=== PATIENT | female | born 1960 | race Asian ===

== ENCOUNTER 2017-01-08 09:05 | Emergency (ER) | payer SELFPAY ==
[2017-01-08 09:18] VITALS: BP 140/79; PULSE 77; TEMP 98.3; BMI 29.2
--- NOTE | 2017-01-08 10:32 | PDOC ---
History of Present Illness - General Chief Complaint: Respiratory Stated Complaint: COUGH Time Seen by Provider: 01/08/17 09:27 History Source: Patient Exam Limitations: No Limitations - History of Present Illness Initial Comments: 01/08/17 10:27 56 yr female no medical history c/o cough for one week. Pt on day 4 of albuterol inhaler, prednisone and augmentin. Pt denies fever or chills, is requesting a cxr. Pt has no history of travel, states she is feeling better. 01/08/17 10:28 Timing/Duration: reports: week Severity: reports: mild Past History - Past Medical History Allergies/Adverse Reactions: Allergies Allergy/AdvReac Type Severity Reaction Status Date / Time No Known Allergies Allergy Unverified 01/08/17 09:16 Home Medications: Ambulatory Orders Glyburide 5 mg PO BID 01/08/17 Lisinopril/Hydrochlorothiazide [Lisinopril-Hctz 10-12.5 mg Tab] 10 mg PO ASDIR 01/08/17 Metformin HCl [Metformin HCl ER] 500 mg PO BID 01/08/17 Promethazine HCl/Codeine [Prometh-Codein 6.25-10 mg/5 ml] 5 ml PO QID PRN #100 syrup MDD 30ml 01/08/17 Diabetes: Yes - Psycho/Social/Smoking Cessation Hx Suicidal Ideation: No Smoking History: Smoker current status UNK Information on smoking cessation initiated: No Hx Alcohol Use: No Drug/Substance Use Hx: No Respiratory Specific PMHX - Complaint Specific PMHX Angina: No Bronchitis: No Pneumonia: No Pulmonary Embolus: No TB (Tuberculosis): No Review of Systems - Review of Systems Able to Perform ROS?: Yes Is the patient limited [place] proficient: No Constitutional: No: Symptoms Reported HEENTM: No: Symptoms Reported Respiratory: Yes: See HPI, Cough *Physical Exam - Vital Signs Last Vital Signs Temp Pulse Resp BP Pulse Ox 98.3 F 77 17 140/79 98 01/08/17 09:11 01/08/17 09:11 01/08/17 09:11 01/08/17 09:11 01/08/17 09:11 - Physical Exam General Appearance: Yes: Nourished, Appropriately Dressed HEENT: positive: EOMI, [place], Normal ENT Inspection, TMs Normal, Pharynx Normal Neck: positive: Supple Respiratory/Chest: positive: Lungs Clear, Normal Breath Sounds. negative: Chest Tender Cardiovascular: positive: Regular Rhythm, Regular Rate Gastrointestinal/Abdominal: positive: Normal Bowel Sounds, Soft Musculoskeletal: positive: Normal Inspection Extremity: positive: Normal Capillary Refill, Normal Inspection, Normal Range of Motion Integumentary: positive: Normal Color, Dry, Warm Neurologic: positive: Fully Oriented, Alert, Normal Mood/Affect, Normal Response , Motor Strength 11/28 ED Treatment Course - RADIOLOGY Radiology Studies Ordered: Category Date Time Status CHEST PA & LAT [RAD] Stat Radiology 01/08/17 09:27 Taken Medical Decision Making - Medical Decision Making 01/08/17 10:28 cc: cough productive phlegm improving since taking meds pt requesting CXR no sob no cp vitals stable 01/08/17 10:52 cxr is negative results have been given to the patient all questions asked and answered on discharge *DC/Admit/Observation/Transfer Diagnosis at time of Disposition: Cough - Discharge Dispostion Disposition: HOME Condition at time of disposition: Good - Prescriptions Prescriptions: Promethazine HCl/Codeine [Prometh-Codein 6.25-10 mg/5 ml] 5 ml PO QID PRN #100 syrup MDD 30ml PRN Reason: Cough - Referrals Referrals: Hubert Butler MD [Staff Physician] - - Patient Instructions Additional Instructions: continue taking the medications you are on take the cough syrup as prescribed with food DO NOT DRIVE, OPERATE MACHINERY OR DRINK ALCOHOL THIS CONTAINS CODEINE return if any worsening symptoms make sure you are drinking pleanty of fluids follow with ENT and allergy if symptoms continue
== END 2017-01-08 10:57 | disposition home or self-care (01) ==
LOC: JERFT 09:05 → JER 09:05 → JERFT 10:57
DX: R05 Cough (principal); E11.9 Type 2 diabetes mellitus without complications; Z79.84 Long term (current) use of oral hypoglycemic drugs
CPT/HCPCS: 71020-TC; 99281-25

== ENCOUNTER 2018-12-03 19:43 | Emergency (ER) | payer OTHER ==
--- NOTE | 2018-12-03 20:09 | PDOC ---
Rapid Medical Evaluation Medical Evaluation: Allergies Allergy/AdvReac Type Severity Reaction Status Date / Time No Known Allergies Allergy Unverified 01/08/17 09:16 I have performed a brief in-person evaluation of this patient. The patient presents with a chief complaint of: L sided flank pain when taking inspiration since this afternoon; had temp of 99 today; denies cough, abd pain, n/v/d Pertinent physical exam findings: In NAD I have ordered the following: Labs, EKG, CXR The patient will proceed to the ED for further evaluation. 12/03/18 20:05
[2018-12-03 20:13] VITALS: TEMP 99.4; BMI 29.7
[2018-12-03] MEDS ORDERED: ACETAMINOPHEN 325 MG TABLET (FP) PO ONE (21:07)
[2018-12-03] MEDS ORDERED: CYCLOBENZAPRINE HCL 10 MG TABLET (FP) PO ONE (21:07)
--- NOTE | 2018-12-03 21:07 | PDOC ---
History of Present Illness - General Chief Complaint: Back Pain Stated Complaint: BACK PAIN Time Seen by Provider: 12/03/18 20:05 Past History - Past Medical History Allergies/Adverse Reactions: Allergies Allergy/AdvReac Type Severity Reaction Status Date / Time No Known Allergies Allergy Unverified 12/03/18 20:10 Home Medications: Ambulatory Orders Glyburide 5 mg PO BID 01/08/17 Lisinopril/Hydrochlorothiazide [Lisinopril-Hctz 10-12.5 mg Tab] 10 mg PO ASDIR 01/08/17 metFORMIN HCL [Metformin HCl ER] 500 mg PO BID 01/08/17 Acetaminophen [Tylenol] 650 mg PO Q6H #30 capsule 12/03/18 Cyclobenzaprine HCl [Flexeril -] 10 mg PO HS #10 tablet 12/03/18 COPD: No Diabetes: Yes - Suicide/Smoking/Psychosocial Hx Smoking History: Never smoked Have you smoked in the past 12 months: No Information on smoking cessation initiated: No Hx Alcohol Use: No Drug/Substance Use Hx: No *Physical Exam - Vital Signs Last Vital Signs Temp Pulse Resp BP Pulse Ox 99.4 F 103 H 22 H 138/76 100 12/03/18 20:07 12/03/18 20:07 12/03/18 20:07 12/03/18 20:07 12/03/18 20:07 *DC/Admit/Observation/Transfer Diagnosis at time of Disposition: Thoracic back pain Qualifiers: Chronicity: acute Back pain laterality: left Qualified Code(s): M54.6 - Pain in thoracic spine - Discharge Dispostion Disposition: HOME Condition at time of disposition: Stable Decision to Admit order: No - Referrals Referrals: Rudy Reyna MD [Staff Physician] - - Patient Instructions Printed Discharge Instructions: DI for Thoracic Back Pain Additional Instructions: You have upper back pain. Please take the Tylenol as directed. You were also prescribed Flexeril. Please take this medication every 8 hours for the first day. Then take the medication before you go to bed. Do not drive after taking this medication as it may make you sleepy. You may use warm compresses on your back to help with her symptoms. Please follow-up with your primary care doctor. Return to the emergency department if you have worsening back pain, shortness of breath, increased pain with breathing, lightheadedness, or if you have any changes in your symptoms - Post Discharge Activity Forms/Work/School Notes: Back to Work
[2018-12-03] MEDS ORDERED: CYCLOBENZAPRINE HCL 10 MG TABLET (FP) ONE (21:29)
[2018-12-03] MEDS ORDERED: ACETAMINOPHEN 325 MG TABLET (FP) ONE (21:29)
[2018-12-03 21:57] LABS: PH,URINE 6.5 (5.0-8.0); URINE APPEARANCE CLEAR; URINE BILIRUBIN NEGATIVE (NEGATIVE); URINE COLOR YELLOW; URINE GLUCOSE (UA) NEGATIVE (NEGATIVE); URINE KETONE NEGATIVE (NEGATIVE); URINE LEUK ESTERASE NEGATIVE (NEGATIVE); URINE NITRITE NEGATIVE (NEGATIVE); URINE PROTEIN NEGATIVE (NEGATIVE); URINE UROBILINOGEN 0.2 mg/dL (0.2-1.0)
[2018-12-03 22:50] VITALS: BP 125/73; PULSE 85
--- NOTE | 2018-12-04 11:40 | EKG ---
Test Reason : Blood Pressure : / mmHG Vent. Rate : 112 BPM Atrial Rate : 112 BPM P-R Int : 178 ms QRS Dur : 080 ms QT Int : 320 ms P-R-T Axes : 060 034 041 degrees QTc Int : 436 ms SINUS TACHYCARDIA POSSIBLE LEFT ATRIAL ENLARGEMENT NONSPECIFIC T WAVE ABNORMALITY ABNORMAL ECG WHEN COMPARED WITH ECG OF 23-JUN-2011 11:28, NONSPECIFIC T WAVE ABNORMALITY NOW EVIDENT IN LATERAL LEADS Confirmed by DENISSE STOKES, GREGORY ([id number]) on 12/04/2018 11:40:44 AM Referred By: Confirmed By:GREGORY SALCEDO MD
== END 2018-12-03 22:59 | disposition home or self-care (01) ==
LOC: JER 19:43
DX: M54.6 Pain in thoracic spine (principal); E11.9 Type 2 diabetes mellitus without complications; Z79.84 Long term (current) use of oral hypoglycemic drugs
CPT/HCPCS: 71046-TC-FY; 81003; 87086; 93005; 93010; 99281-25

== ENCOUNTER 2023-11-29 12:19 | Emergency (ER) | payer BC, OTHER ==
[2023-11-29 12:25] VITALS: RESP 18; TEMP 98.4; BMI 28.3
[2023-11-29 13:49] LABS: BASO % 0.3 % (0-2.0); HEMATOCRIT 41.4 % (32.4-45.2); HEMOGLOBIN 13.6 GM/dL (10.7-15.3); LYMPH % 22.8 % (8-40); MCHC 32.8 g/dl (32.0-36.0); MEAN CELL VOLUME 79.2 fl (80-96); MEAN PLT VOLUME 8.8 fl (7.5-11.1); MONO % 6.6 % (3.8-10.2); NEUT % 69.3 % (42.8-82.8); PLATELET COUNT 185 10^3/uL (134-434); RBC 5.23 M/mm3 (3.60-5.2); RDW 15.5 % (11.6-15.6); WHITE BLOOD COUNT 9.5 K/mm3 (4.0-10.0)
[2023-11-29] MEDS ORDERED: DIPHTH,PERTUSS(ACELL),TET 0.5 ML DISP.SYRIN IM ONE (13:52)
[2023-11-29] MEDS ORDERED: ACETAMINOPHEN INJECTION 100 ML IVPB ONE (13:52)
[2023-11-29] MEDS: DIPHTH,PERTUSS(ACELL),TET 0.5 ML DISP.SYRIN IM ONE (13:53)
[2023-11-29] MEDS: ACETAMINOPHEN 1000 MG/100 ML BAG IVPB ONE (13:54)
[2023-11-29] MEDS: SODIUM CHLORIDE 1,000 ML IV STA (13:54)
[2023-11-29] MEDS ORDERED: AMPICILLIN NA/SULBACTAM NA 3 GM/100 ML BAG IVPB ONE (14:13)
[2023-11-29] MEDS: AMPICILLIN NA/SULBACTAM NA 3 GM in DEXTROSE 5%-WATER 100 ML IVPB ONE (14:15)
[2023-11-29 14:17] LABS: POTASSIUM 4.3 mmol/L (3.5-5.1)
[2023-11-29 14:19] LABS: CALCIUM 9.8 mg/dL (8.5-10.1)
[2023-11-29 14:20] LABS: ALBUMIN 4.2 g/dl (3.4-5.0); BLOOD UREA NITROGEN 8.2 mg/dL (7-18)
[2023-11-29 14:23] LABS: CREATININE 0.7 mg/dL (0.55-1.3)
[2023-11-29 14:24] LABS: BILIRUBIN,TOTAL 1.4 mg/dL (0.2-1); TOT PROT 7.9 g/dl (6.4-8.2)
[2023-11-29 15:42] VITALS: BP 113/61; PULSE 61
== END 2023-11-29 15:46 | disposition home or self-care (01) ==
LOC: JER 12:19
DX: S61.432A Puncture wound without foreign body of left hand, initial encounter (principal); L03.114 Cellulitis of left upper limb; W26.8XXA Contact with other sharp object(s), not elsewhere classified, initial encounter
CPT/HCPCS: 36415; 73110-TC-LT-FY; 73130-TC-LT-FY; 76882-TC-RT-FY; 80053; 85025; 90715; 99285-25; J0131